=== PATIENT | male | born 1980 | race Caucasian/White ===

== ENCOUNTER → 2017-12-14 | Outpatient (REF) ==
[~2017-12-14] MED LIST: ALB6.7R INH; DIAZ-308 PO; DOCU-416 PO; DUL100/5PT INH; OXYC-865 PO; PROP80TA25 PO; TRAM-627 PO
== END ==
LOC: AUD 11:11
PROVIDERS: ATTEND Nurse Practitioner
DX: Z01.10 Encounter for examination of ears and hearing without abnormal findings (principal)
CPT/HCPCS: 92552

== ENCOUNTER → 2019-04-11 | Outpatient (REF) | payer BC, OTHER | LOC: ZZSENDIN 16:17 | PROVIDERS: ATTEND Family Medicine | DX: R10.827 Generalized rebound abdominal tenderness (principal) | CPT/HCPCS: 82040; 82247; 82310; 82374; 82435; 82565; 82947; 83690; 84075; 84132; 84155; 84295; 84450; 84460; 84520 ==

== ENCOUNTER → 2019-04-12 | Outpatient (CLI) | payer BC ==
[~2019-04-12] MED LIST changes: +CETI-176 PO; +IOPAMIDOL 76% 100 ML INFUS BTL 100 ML ONE; +OMEP-126 PO; +SUCR1TAB85 PO
--- NOTE | 2019-04-12 15:01 | RADIOLOGY IMAGING REPORT ---
FACILITY: [facility] [place] PATIENT NAME: Samson Mueller : 1980 MR: [id number] V: [id number] EXAM DATE: ORDERING PHYSICIAN: GEORGIA BENTON TECHNOLOGIST: Location: [facility] [place] Patient: Samson Mueller : 1980 Visit/Account:[id number] Date of Sevice: 04/12/2019 CT ABDOMEN PELVIS W & W/O CONTRAST HISTORY: Rebound tenderness, constipation TECHNIQUE: Axial images acquired through the abdomen/pelvis both with and without IV contrast.. Ana nal and sagittal reformatting also performed.Dose Lowering Technique One of the following dose optimization techniques was utilized in the performance of this exam: Autom ated exposure control; adjustment of the mA and/or kV according to the patient's size; or use of an i terative reconstruction technique. Specific details can be referenced in the facility's radiology C T exam operational policy. CONTRAST: 75 mL Isovue-[id number] COMPARISON: None. FINDINGS: Visualized lung bases: Linear stranding the lung bases is consistent with mild linear scarring versu s mild atelectasis Hepatobiliary: Negative. Spleen: Negative. Adrenals: Negative. Pancreas: There are infiltrative changes surrounding the peripancreatic fat that extend to the thick ened greater curvature the stomach. There also appears to be a small amount of fluid in the lesser s ac Kidneys ureters and bladder: Negative. Genitalia: There suggestion of a small left hydrocele which is incompletely imaged. Prominent vesse ls in the left side of the scrotal sac may represent a varicocele GI: There is mild sigmoid diverticulosis although no CT evidence of acute diverticulitis . There is thickening along the greater curvature the stomach with adjacent inflammatory change. Vessels/spaces/nodes: There is a small amount of fluid in the lesser sac and a trace amount of free pelvic fluid Bones/soft tissues: There is a small umbilical hernia containing fat. There is a bulging disc at L5 -S1 Additional findings: None pertinent. IMPRESSION: There are infiltrative changes surrounding the peripancreatic fat extending to the thickened greater curvature the stomach. There also appears to be a small amount of fluid in the lesser sac. This melvin nges are likely related to pancreatitis although the differential diagnosis would include gastric inf lammation with inferior tracking towards the pancreas. Suggestion of a small left hydrocele and prominent vessels left-sided scrotal sac which may represent a varicocele Small focal hernia containing fat Bulging disc at L5-S1 Results were called to GEORGIA BENTON at 04/12/2019 2:54 PM. Report Dictated By: Grace Lopez MD at 04/12/2019 2:40 PM Report E-Signed By: Grace Lopez MD at 04/12/2019 2:54 PM WSN:[id number]
== END ==
LOC: CT 07:02
PROVIDERS: ATTEND Family Medicine
DX: K40.90 Unilateral inguinal hernia, without obstruction or gangrene, not specified as recurrent (principal); M51.27 Other intervertebral disc displacement, lumbosacral region
CPT/HCPCS: 74178; Q9967

== ENCOUNTER 2019-04-14 00:42 | Day surgery (SDC) | payer BC, OTHER ==
[~2019-04-14] VITALS: Ht 185.4 cm; Wt 74.4 kg
[~2019-04-14 00:42] MED LIST changes: -IOPAMIDOL 76% 100 ML INFUS BTL 100 ML ONE
[2019-04-14] MEDS ORDERED: LIDOCAINE MPF 1% 5 ML VIAL ONE (09:18)
[2019-04-14] MEDS ORDERED: PROPOFOL EMUL(*) 10MG/ML 20 ML 40 ML ONE (09:18)
[2019-04-14] MEDS ORDERED: GLYCOPYRROLATE 0.2MG/ML 1 ML INJ IVP ONE (09:55)
[2019-04-14 10:13] VITALS: BP 128/88
[2019-04-14] MEDS ORDERED: NORMOSOL R SOLN(*) 1000 ML BAG 1,000 ML IV PRN (10:15)
[2019-04-14] MEDS ORDERED: LIDOCAINE/SOD BICARB 8.4% SYR ID ONE (10:15)
[2019-04-14 10:53] VITALS: BP 106/68
--- NOTE | 2019-04-14 11:02 | Short(Outpt) Discharge Summary ---
Discharge Summary Reason for Hosp/Final Diag: (1) [facility] Hospital Course & Plan: pt presented for egd. he tolerated the procedure well and will be discharged home when criteria met. Departure Discharge to: Home Discharge Instructions Home Meds Active Scripts Propranolol Hcl (PROPRANOLOL HCL) 80 Mg Tablet, 1 TAB PO QDAY, #90 TAB Prov:NURIS GARNICA MD 09/02/17 Reported Medications Sucralfate (CARAFATE) 1 Gm Tablet, 1 GM PO TID 04/13/19 Cetirizine Hcl (ZYRTEC) 10 Mg Tablet, 10 MG PO QDAY, TAB 04/13/19 Omeprazole (OMEPRAZOLE) 20 Mg Capsule.dr, 1 CAP PO BID, CAP 04/13/19 Albuterol Sulfate (PROVENTIL HFA) 6.7 Gm Inh, 1-2 PUFF INH PRN, INH EXTREMELY RARE USE 10/24/15 Discontinued Reported Medications Diazepam (DIAZEPAM) 5 Mg Tablet, 5 MG PO Q8H for Muscle Relaxant, TAB 12/16/15 Tramadol Hcl (ULTRAM) 50 Mg Tablet, 50-100 MG PO Q4-6H PRN for PAIN, TAB 12/13/15 Oxycodone Hcl/Acetaminophen (PERCOCET 5-325 MG TABLET) 1 Each Tablet, 1-2 EACH PO Q4H, TAB 10/28/15 Mometasone/Formoterol (DULERA 100 MCG/5 MCG INHALER) 13 Gm Inh, 13 GM INH QDAY, INH 10/24/15 Diet: Regular Activity: As Tolerated Special Instructions: we will call you in 10 days with results. ROCHELLE DELANEY Apr 14, 2019 11:02
[2019-04-14 11:20] VITALS: BP 117/79
[2019-04-14 11:21] VITALS: BP 126/86
== END 2019-04-14 11:35 | disposition home or self-care (01) ==
LOC: OR 00:42
PROVIDERS: ATTEND Surgery
DX: K29.70 Gastritis, unspecified, without bleeding (principal)
CPT/HCPCS: 43239; 87077; 88305; 88342; J2001; J2704; J3490